=== PATIENT | female | born 1975 | race Caucasian/White ===

== ENCOUNTER 2017-01-01 16:28 | Emergency (ER) | payer BC ==
[2017-01-01 16:37] VITALS: BP 143/102
[2017-01-01] MEDS ORDERED: Ondansetron ODT TAB* 4 MG PO ONE (18:03)
--- NOTE | 2017-01-01 20:41 | UC ---
Gil Ramirez Aidan, scribed for Clarice Hopson MD on 01/01/17 at 1714 . FLU HPI - HPI Summary HPI Summary: 41 y/o female presents to the Urgent Care with a complaint of acute, constant, moderate nausea and fatigue that has persisted for the past week. Associated symptoms include an acute, constant, severe (9/10) AUGUSTE for the past week, swelling in the legs, some SOB, and a dry cough in the mornings. Yesterday, her symptoms became steadily worse. She claims that she is nauseous and hungry all the time. Pt denies any changes to her vision, constipation, diarrhea, changes to joint discomfort, changes to stool color, or urinary sx. Lastly, she requests a test because her period last month lasted only 3 days, which is atypical for her. Pt is S/P liver transplant with autoimmune hepatitis. - History of Current Complaint Chief Complaint: UCGeneralIllness Stated Complaint: NAUSEOUS,FATIGUE Time Seen by Provider: 01/01/17 17:08 Hx Obtained From: Patient Hx Last Menstrual Period: 12/04/16 ?: No Onset/Duration: Gradual Onset, Lasting Days - roughly 1 week, Still Present Severity Currently: Moderate Severity Initially: Severe Pain Intensity: 9 Pain Scale Used: 0-10 Numeric Associated Signs & Symptoms: Positive: Cough, Headache. Negative: Negative - nausea and fatigue, SOB, swelling in the ears, - Allergy/Home Medications Allergies/Adverse Reactions: Allergies Allergy/AdvReac Type Severity Reaction Status Date / Time No Known Allergies Allergy Verified 08/12/15 09:28 PMH/Surg Hx/FS Hx/Imm Hx - Surgical History Surgical History: Yes Surgery Procedure, Year, and Place: LIVER TRANSPLANT 2002 - Family History Known Family History: Positive: Hypertension - Social History Occupation: Employed Full-time Lives: With Family Alcohol Use: Daily Alcohol Amount: 1-2 GLASSES WINE/DAY Substance Use Type: None Smoking Status (MU): Never Smoked Tobacco Review of Systems Constitutional: Fatigue Skin: Negative Eyes: Negative ENT: Negative Respiratory: Shortness Of Breath, Cough Cardiovascular: Negative Gastrointestinal: Nausea Genitourinary: Negative Motor: Negative Neurovascular: Negative Musculoskeletal: Edema - swelling in legs Neurological: Headache Psychological: Negative All Other Systems Reviewed And Are Negative: Yes Physical Exam Triage Information Reviewed: Yes Appearance: Well-Nourished Vital Signs: Initial Vital Signs Temp 98.8 F 06/16/17 16:33 Pulse 104 01/01/17 16:33 Resp 20 01/01/17 16:33 BP 143/102 01/01/17 16:33 Pulse Ox 100 01/01/17 16:33 Vital Signs Reviewed: Yes Eye Exam: Normal Eyes: Positive: Other: - NON-dilated funduscopic exam grossly normal, PERRL, pupils approximately 3mm, Slight nystagmus, left horizontal ENT Exam: Normal ENT: Positive: Other: - Moist mucous membranes, Left TM leos, nonretracted, right TM not visible secondary to cerumen impaction Neck exam: Normal Neck: Positive: Supple, Nontender, No Lymphadenopathy, Other: - Trachea midline Respiratory Exam: Normal, Other - no dyspnea, no tachypnea, normal respiratory rate Respiratory: Positive: Chest non-tender, Lungs clear, Normal breath sounds, No respiratory distress, No accessory muscle use Cardiovascular Exam: Normal, Other - good general skin color, good capilary refill Cardiovascular: Positive: RRR, Brisk Capillary Refill, Murmur:Sys:Grade _?_/ - 1-2+/6 systolic murmur, Other: - HR 100s, correlate with left radial pulse, 1 -2/6 systolic murmur. Negative: No Murmur Abdomen Description: Positive: Nontender, No Organomegaly, Soft, Other: - S/P liver transplant scar noted, No CVAT. Negative: CVA Tenderness (R), CVA Tenderness (L) Bowel Sounds: Positive: Present Musculoskeletal Exam: Normal Musculoskeletal: Positive: Strength Intact, ROM Intact - moves all 4 extremities equally, Other: - PT/DP 2+ equasl bilat. 1+ bilateral extremity edema, No theodore Homans although does complain of achiness of joints including legs Neurological Exam: Normal, Other - grossly intact, nonfocal Neurological: Positive: Other: - Facial expressions symmetric Psychological Exam: Normal, Other - responds easily and appropriately Psychological: Positive: Age Appropriate Behavior Skin Exam: Normal, Other - no visible or reported rash Flu Course/Dx - Course Course Of Treatment: I reviewed the CT Chest from 08/12/[address] Abdomen/ Pelvis from 07/24/15. The patient's blood pressure was 143/102, indicating hypertension. D/w pt. I recommend transfer to the Emergency Department for further evaluation and management. D/w Ms. Branch and her spouse. They express understanding and agreement. EMS encouraged, but they politely but firmly decline (ama for ems signed). I spoke with Dr. Benjamin ED. UCG negative. Zofran odt x 1 prior to departure. Questions answered to the best of my ability. - Differential Dx/Diagnosis Provider Diagnoses: Headache. Hypertension. Immunosuppressive tx, s/p liver transplant (14 yrs ago). Nausea Discharge - Discharge Plan Condition: Good Disposition: TRANS HIGHER LVL OF CARE FAC Referrals: Oscar Fabian MD [Primary Care Provider] - Additional Instructions: Your blood pressure was 143/102, indicating hypertension. Recommended follow up with your primary care provider within 4 weeks to have your blood pressure evaluated. The documentation as recorded by the Gil bull Aidan accurately reflects the service I personally performed and the decisions made by me, Clarice Hopson MD.
== END 2017-01-01 18:19 | disposition short-term general hospital (02) ==
LOC: UCEAST 16:28
DX: R51 Headache (principal); Z94.4 Liver transplant status; Z79.899 Other long term (current) drug therapy; R11.0 Nausea
CPT/HCPCS: 81003; 84702; 87086; 99212; A9270-GY; G0463

== ENCOUNTER 2017-01-01 18:35 | Emergency (ER) | payer BC ==
[2017-01-01] MEDS ORDERED: diPHENhydraMINE IV* 50 MG/ML 1 ml VIAL (BENADRYL) IV ONE (19:12)
[2017-01-01] MEDS ORDERED: Ketorolac INJ* 30 MG/ML 1 ML VIAL IV ONE (19:12)
[2017-01-01] MEDS ORDERED: Metoclopramide IV* 5 MG/ML 2 ML VIAL IV ONE (19:12)
[2017-01-01 21:09] LABS: Hematocrit 36 % (35-47); Hemoglobin 12.3 g/dl (12.0-16.0); Mean Corpuscular HGB Conc 34 g/dl (31-36); Mean Corpuscular Hemoglobin 31 pg (27-31); Mean Corpuscular Volume 90 fL (80-97); Mean Platelet Volume 8 um3 (7.4-10.4); Red Blood Count 3.99 10^6/ul (4.0-5.4); Red Cell Distribution Width 15 % (10.5-15); White Blood Count 10.1 10^3/ul (3.5-10.8)
[2017-01-01] MEDS ORDERED: Ondansetron ODT TAB* 4 MG PO ONE (21:18)
[2017-01-01 21:45] VITALS: BP 143/93
--- NOTE | 2017-01-01 22:44 | ED ---
Sissy Ramirez Alfonso, scribed for Ant Flores MD on 01/01/17 at 1911 . Complex/Multi-Sys Presentation - HPI Summary HPI Summary: This is a 41 year old female presenting to [facility] c/o a frontal headache since earlier today. The patient states "everything is bothering me with this headache." She reports taking Excedrin at 0830 has not alleviated her symptoms. Sx aggravated by noise and light, and alleviated by nothing. She reports chills , SOB, cough, nausea, dizziness, photophobia, and loss of appetite. She also reports "aches and pains" since last month. PMHx of migraines. PSHx of liver transplant in 2002. - History Of Current Complaint Chief Complaint: EDHeadache Time Seen by Provider: 01/01/17 18:51 Hx Obtained From: Patient Onset/Duration: Sudden Onset, Lasting Hours - Earlier today, Still Present Timing: Constant Severity Currently: Moderate Severity Initially: Moderate Aggravating Factor(s): Noise and light Alleviating Factor(s): Nothing Associated Signs And Symptoms: Positive: Dizziness, SOB, Cough, Nausea, Other - Positive chills, loss of appetite, and photophobia. - Allergies/Home Medications Allergies/Adverse Reactions: Allergies Allergy/AdvReac Type Severity Reaction Status Date / Time No Known Allergies Allergy Verified 08/12/15 09:28 PMH/Surg Hx/FS Hx/Imm Hx Cardiovascular History: Reports: Hx Hypertension Sensory History: Denies: Hx Deafness Opthamlomology History: Denies: Hx Legally Blind - Surgical History Surgery Procedure, Year, and Place: LIVER TRANSPLANT 2002 Infectious Disease History: No Infectious Disease History: Denies: Traveled Outside the [place] in Last 30 Days - Family History Known Family History: Positive: Cardiac Disease, Other - Cancers - Social History Alcohol Use: Daily Alcohol Amount: 1-2 GLASSES WINE/DAY Substance Use Type: Reports: None Smoking Status (MU): Never Smoked Tobacco Review of Systems Positive: Chills Positive: Shortness Of Breath Positive: Nausea, Other - Positive loss of appetite Positive: Arthralgia - "aches and pains" since last month Neurological: Other - Positive dizziness and photophobia Positive: Headache - Frontal All Other Systems Reviewed And Are Negative: Yes Physical Exam Triage Information Reviewed: Yes Vital Signs On Initial Exam: Initial Vitals Temp Pulse Resp BP Pulse Ox 97.1 F 92 20 141/107 100 01/01/17 18:42 01/01/17 18:42 01/01/17 18:42 01/01/17 18:42 01/01/17 18:42 Vital Signs Reviewed: Yes Appearance: Positive: Well-Appearing, No Pain Distress, Obese Skin: Positive: Warm, Skin Color Reflects Adequate Perfusion, Dry Head/Face: Positive: Normal Head/Face Inspection Eyes: Positive: Normal ENT: Positive: Normal ENT inspection Neck: Positive: Supple, Nontender Respiratory/Lung Sounds: Positive: Clear to Auscultation, Breath Sounds Present Cardiovascular: Positive: RRR Abdomen Description: Positive: Nontender, Soft, Other: - Tender paracervical Bowel Sounds: Positive: Present Musculoskeletal: Positive: Normal Neurological: Positive: Normal, Sensory/Motor Intact, Alert, Oriented to Person Place, Time, CN Intact II-III, Other - Negative for meningeal signs. Negative: Focal Deficit @ Psychiatric: Positive: Normal Diagnostics - Vital Signs Vital Signs Temp Pulse Resp BP Pulse Ox 01/01/17 18:46 97.1 F 98 20 141/107 100 01/01/17 18:42 97.1 F 92 20 141/107 100 - Laboratory Lab Results: Lab Results 01/01/17 Range/Units 19:34 WBC 10.1 (3.5-10.8) 10^3/ul RBC 3.99 L (4.0-5.4) 10^6/ul Hgb 12.3 (12.0-16.0) g/dl Hct 36 (35-47) % MCV 90 (80-97) fL MCH 31 (27-31) pg MCHC 34 (31-36) g/dl RDW 15 (10.5-15) % Plt Count 212 (150-450) 10^3/ul MPV 8 (7.4-10.4) um3 Neut % (Auto) 58.2 (38-83) % Lymph % (Auto) 32.2 (25-47) % [place] % (Auto) 7.2 (1-9) % Eos % (Auto) 1.9 (0-6) % Baso % (Auto) 0.5 (0-2) % Absolute Neuts (auto) 5.9 (1.5-7.7) 10^3/ul Absolute Lymphs (auto) 3.3 (1.0-4.8) 10^3/ul Absolute Monos (auto) 0.7 (0-0.8) 10^3/ul Absolute Eos (auto) 0.2 (0-0.6) 10^3/ul Absolute Basos (auto) 0.1 (0-0.2) 10^3/ul Absolute Nucleated RBC 0 10^3/ul Nucleated RBC % 0 Result Diagrams: 01/01/17 19:34 Lab Statement: Any lab studies that have been ordered have been reviewed, and results considered in the medical decision making process. Re-Evaluation - Re-Evaluation First Eval Re-Evaluation Time: 20:30 Comment: The patient is still nauseous and in bed. Second Eval Re-Evaluation Time: 21:17 Change: Improved Comment: The patient is feeling better. Discussed discharge; she understands and is agreeable. Complex Multi-Symp Course/Dx Course Of Treatment: Ms. Branch relates to me that she has been nauseated for several days with a slight nonproductive cough and that this has triggered a migraine. She describes her AUGUSTE as typical for her migraines. Her W/U here is negative for evidence of infection and she has no meningeal signs. She improved here with a migraine cocktail of ketorolac, benadryl, reglan and IV NS. She may have a viral syndrome with the slight cough and nausea. I recommended close F/U. - Diagnoses Provider Diagnoses: Migraine headache Discharge - Discharge Plan Condition: Stable Disposition: HOME Prescriptions: Ondansetron ODT TAB* [Zofran Odt TAB*] 4 mg PO Q6H PRN #20 tab.odt PRN Reason: Nausea/Vomiting Patient Education Materials: Migraine Headache (ED) Referrals: Oscar Fabian MD [Primary Care Provider] - 3 Days Additional Instructions: Return to the ED if symptoms do not improve. The documentation as recorded by the Sissy bull Alfonso accurately reflects the service I personally performed and the decisions made by me, Ant Flores MD.
== END 2017-01-01 21:42 | disposition home or self-care (01) ==
LOC: ED 18:35
DX: G43.909 Migraine, unspecified, not intractable, without status migrainosus (principal); R51 Headache; R42 Dizziness and giddiness; R06.02 Shortness of breath; R05 Cough; R11.0 Nausea
CPT/HCPCS: 36415; 85025; 96374; 96375; 99283; A9270-GY; J1200; J1885

== ENCOUNTER 2017-02-08 15:12 | Emergency (ER) | payer SELFPAY ==
[2017-02-08 17:17] LABS: Hematocrit 37 % (35-47); Hemoglobin 12.5 g/dl (12.0-16.0); Mean Corpuscular HGB Conc 34 g/dl (31-36); Mean Corpuscular Hemoglobin 31 pg (27-31); Mean Corpuscular Volume 92 fL (80-97); Mean Platelet Volume 8 um3 (7.4-10.4); Red Blood Count 3.99 10^6/ul (4.0-5.4); Red Cell Distribution Width 15 % (10.5-15); White Blood Count 10.4 10^3/ul (3.5-10.8)
[2017-02-08 17:32] LABS: BUN/Creatinine Ratio 9.3 (8-20); Calcium 9.3 mg/dL (8.6-10.3); EGFR African American 72.3 (>60); EGFR Non-African American 56.2 (>60); Potassium 3.6 mmol/L (3.5-5.0)
[2017-02-08] MEDS ORDERED: Iodixanol* (CONTRAST) 320 MG/ML 100 ML SDV IV ONE (17:43)
[2017-02-08] MEDS ORDERED: Metoclopramide IV* 5 MG/ML 2 ML VIAL IV SLOW PU ONE (17:47)
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
[2017-02-08 21:38] VITALS: BP 135/87
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
== END 2017-02-08 21:38 ==
LOC: ED 15:12
DX: S06.0X0A Concussion without loss of consciousness, initial encounter (principal); S16.1XXA Strain of muscle, fascia and tendon at neck level, initial encounter; V43.52XA Car driver injured in collision with other type car in traffic accident, initial encounter; Y93.9 Activity, unspecified; Y92.410 Unspecified street and highway as the place of occurrence of the external cause; M79.671 Pain in right foot; I10 Essential (primary) hypertension; Z94.4 Liver transplant status
CPT/HCPCS: 36415; 70450; 71260; 72110; 72125; 80048; 85027; 96374; 99283; Q9967

== ENCOUNTER 2018-06-20 06:02 | Emergency (ER) | payer BC, OTHER ==
--- NOTE | 2018-06-20 06:21 | ED ---
Abdominal Pain/Female - HPI Summary HPI Summary: Patient is a 43-year-old female who presents to emergency department for diffuse abdominal cramping, diarrhea and decreased appetite 2 weeks. Patient notes a history of autoimmune hepatitis with liver transplant in 2002. Patient notes that she restarted magnesium 2 days ago for ongoing low magnesium. She also notes her cellcept dose was increased over the last few days. Pt. notes being on what she believes was clindamycin 2 weeks ago for an abscess under left axilla. Abscess has since resolved. Pt. notes 2-3 loose water stools a days. She notes associated abd. cramping after bowel movement. Denies fever, chills, URI sxs, vomiting, urinary sxs. Denies other past medical hx. Symptoms are moderate in severity. - History of Current Complaint Chief Complaint: EDAbdPain Stated Complaint: GENERAL ILLNESS Time Seen by Provider: 06/20/18 06:18 Hx Obtained From: Patient Hx Last Menstrual Period: 12/04/16 Pain Intensity: 6 Allergies/Adverse Reactions: Allergies Allergy/AdvReac Type Severity Reaction Status Date / Time No Known Allergies Allergy Verified 06/20/18 06:17 PMH/Surg Hx/FS Hx/Imm Hx Previously Healthy: Yes Cardiovascular History: Reports: Hx Hypertension Sensory History: Denies: Hx Legally Blind, Hx Deafness Opthamlomology History: Denies: Hx Legally Blind - Surgical History Surgery Procedure, Year, and Place: LIVER TRANSPLANT 2002 - Immunization History Date of Tetanus Vaccine: utd Date of Influenza Vaccine: none Infectious Disease History: No Infectious Disease History: Denies: Traveled Outside the [place] in Last 30 Days - Family History Known Family History: Positive: Cardiac Disease, Other - Cancers - Social History Lives: With Family Alcohol Use: Occasionally Alcohol Amount: 1-2 GLASSES WINE/DAY Substance Use Type: Reports: None Smoking Status (MU): Never Smoked Tobacco Review of Systems Constitutional: Negative Negative: Fever, Chills Eyes: Negative ENT: Negative Cardiovascular: Negative Negative: Chest Pain Respiratory: Negative Negative: Shortness Of Breath, Cough Positive: Abdominal Pain, Diarrhea, Other - decreased appetite Genitourinary: Negative Musculoskeletal: Negative Skin: Negative Neurological: Negative All Other Systems Reviewed And Are Negative: Yes Physical Exam Triage Information Reviewed: Yes Vital Signs On Initial Exam: Initial Vitals Temp Pulse Resp BP Pulse Ox 97.7 F 87 20 107/73 98 06/20/18 06:04 06/20/18 06:04 06/20/18 06:04 06/20/18 06:04 06/20/18 06:04 Vital Signs Reviewed: Yes Appearance: Positive: Well-Appearing - Pt. lying in bed in NAD. Appears tired but nontoxic. Skin: Positive: Warm, Skin Color Reflects Adequate Perfusion Head/Face: Positive: Normal Head/Face Inspection Eyes: Positive: Normal, EOMI, RADHA ENT: Positive: Other - Lips are chapped and mouth is dry Neck: Positive: Supple Respiratory/Lung Sounds: Positive: Clear to Auscultation, Breath Sounds Present Cardiovascular: Positive: Normal, RRR Abdomen Description: Positive: Nontender, Soft. Negative: Distended, Guarding Neurological: Positive: Normal, CN Intact II-III Psychiatric: Positive: Affect/Mood Appropriate Diagnostics - Vital Signs Vital Signs Temp Pulse Resp BP Pulse Ox 06/20/18 06:04 97.7 F 87 20 107/73 98 - Laboratory Result Diagrams: 06/20/18 06:39 06/20/18 06:39 Lab Statement: Any lab studies that have been ordered have been reviewed, and results considered in the medical decision making process. Abdominal Pain Fem Course/Dx - Course Course Of Treatment: Patient presenting with diarrhea and diffuse abdominal cramping 2 weeks. She is afebrile with stable vital signs. She has benign abdominal exam. She was given IV fluids and basic labs were checked. CBC is unremarkable. Mag 1.6 which pt. states is an improvement from her last level. Patient does appear dehydrated with elevated creatinine and BUN compared to her base baseline. Liver functions are normal. Pt. is positive for C diff. I did touch base with pt's exhibits coordinator Yanique, and they state pt. can f.u with PCP. Results discussed with pt. and family. Will start on oral vancomycin. Pt. to call PCP today for a close apt. to recheck kidney function. TO increase fluids. To return to ER If sxs change or worsen. Pt. understands and agrees with plan. - Diagnoses Differential Diagnosis: Positive: Appendicitis, Bowel Obstruction, Constipation , Gall Bladder Disease, Hepatitis, Pancreatitis Provider Diagnoses: C. difficile colitis Discharge - Sign-Out/Discharge Documenting (check all that apply): Patient Departure - Discharge Plan Condition: Good Disposition: HOME Prescriptions: Vancomycin CAP* 125 mg PO QID #40 cap Patient Education Materials: C Diff (Clostridium Difficile) Infection (ED) Forms: *Work Release Referrals: Oscar Fabian MD [Primary Care Provider] - Additional Instructions: Schedule a close follow up appointment with PCP for repeat labs Take vancomycin as directed Increase fluids Continue home medications as directed Return to ER if symptoms change or worsen - Billing Disposition and Condition Condition: GOOD Disposition: Home
[2018-06-20] MEDS ORDERED: NS 0.9% 1000 ML* 1,000 ML IV ONE ×2 (06:28→08:03)
[2018-06-20 06:52] LABS: ABS Basophils 0.1 10^3/ul (0-0.2); ABS Eosinophils 0.4 10^3/ul (0-0.6); ABS Monocytes 0.7 10^3/ul (0-0.8); ABS Neutrophils 5.7 10^3/ul (1.5-7.7); ABS Nucleated RBC 0 10^3/ul; Eosinophil % 4.1 %; Hematocrit 34 % (35-47); Hemoglobin 11.8 g/dl (12.0-16.0); Lymphocyte % 22.8 %; Mean Corpuscular HGB Conc 35 g/dl (31-36); Mean Corpuscular Hemoglobin 31 pg (27-31); Mean Corpuscular Volume 89 fL (80-97); Mean Platelet Volume 8.3 fL (7.4-10.4); Nucleated Red Blood Cells % 0.1; Platelet Count 185 10^3/ul (150-450); Red Blood Count 3.79 10^6/ul (4.00-5.40); Red Cell Distribution Width 13 % (10.5-15); White Blood Count 8.8 10^3/ul (3.5-10.8)
[2018-06-20 10:11] VITALS: BP 123/71
--- NOTE | 2018-06-22 05:55 | PN ---
Progress Note - Progress Note Date of Service: 06/22/18 Note: patient c diff positive. patient placed on vanco which is appropriate no further action required.
== END 2018-06-20 10:10 | disposition home or self-care (01) ==
LOC: ED 06:02
DX: A04.72 Enterocolitis due to Clostridium difficile, not specified as recurrent (principal); Z94.4 Liver transplant status; Z82.49 Family history of ischemic heart disease and other diseases of the circulatory system; Z80.8 Family history of malignant neoplasm of other organs or systems
CPT/HCPCS: 36415; 80053; 83690; 83735; 85025; 87045; 87046; 87077; 87177; 87209; 87328; 87329; 87493; 87899; 96360; 99282

== ENCOUNTER 2018-12-19 18:21 | Emergency (ER) | payer BC ==
[2018-12-19 19:58] LABS: ABS Basophils 0.1 10^3/ul (0-0.2); ABS Eosinophils 0.2 10^3/ul (0-0.6); ABS Lymphocytes 3.2 10^3/ul (1.0-4.8); ABS Monocytes 0.6 10^3/ul (0-0.8); ABS Neutrophils 9.1 10^3/ul (1.5-7.7); Eosinophil % 1.7 %; Hematocrit 42 % (35-47); Hemoglobin 13.9 g/dL (12.0-16.0); Mean Corpuscular HGB Conc 33 g/dL (31-36); Mean Corpuscular Hemoglobin 30 pg (27-31); Mean Corpuscular Volume 90 fL (80-97); Mean Platelet Volume 7.8 fL (7.4-10.4); Platelet Count 296 10^3/uL (150-450); Red Blood Count 4.65 10^6 /uL (3.70-4.87); Red Cell Distribution Width 14 % (10.5-15); White Blood Count 13.2 10^3/uL (3.5-10.8)
[2018-12-19 20:05] LABS: INR 1.09 (0.82-1.09)
[2018-12-19 20:20] LABS: Albumin 4.7 g/dL (3.2-5.2); Albumin/Globulin Ratio 1.1 (1-3); BUN/Creatinine Ratio 7.1 (8-20); Calcium 9.9 mg/dL (8.6-10.3); EGFR African American 63.3 (>60); EGFR Non-African American 52.3 (>60); Globulin 4.1 g/dL (2-4); Potassium 3.6 mmol/L (3.5-5.0); Total Bilirubin 0.6 mg/dL (0.2-1.0); Total Protein 8.8 g/dL (6.4-8.9)
--- NOTE | 2018-12-19 21:41 | ED ---
HPI Chest Pain - HPI Summary HPI Summary: The patient is a 43 y/o F presenting to [facility] accompanied by boyfriend with a chief complaint of sudden onset heart palpitations and chest heaviness starting this morning around [address]30 [address] She states that she has had this pain for the last month or so, but the pain has been more constant today than usual. She states that the pain also radiates into her left arm. She additionally c/o fatigue, nausea, and diaphoresis. She denies SOB. Her pain was mildly relieved in the waiting room but has since returned, with a current rating of 5/10 in severity. She states that she gets some exercise with her 6 y/o daughter. Nonsmoker, no EtOH, no substance use. Hx of HTN (controlled) and liver transplant for hepatitis. FHx of cardiac disease. - History of Current Complaint Chief Complaint: EDChestPainROMI Time Seen by Provider: 12/19/18 21:31 Hx Obtained From: Patient Hx Last Menstrual Period: 12/04/16 Onset/Duration: Started Hours Ago - at 0930 this morning, Still Present Timing: Lasting Hours Initial Severity: Mild Current Severity: Moderate Pain Intensity: 5 Pain Scale Used: 0-10 Numeric Chest Pain Location: Left Anterior, Right Anterior Chest Pain Radiates: Yes Chest Pain Radiates To:: Arm - left Character: Heaviness Aggravating Factor(s): Nothing Alleviating Factor(s): Rest Associated Signs and Symptoms: Positive: Diaphoresis, Nausea, Palpitations, Other: - fatigue. Negative: Shortness of Breath - Allergy/Home Medications Allergies/Adverse Reactions: Allergies Allergy/AdvReac Type Severity Reaction Status Date / Time No Known Allergies Allergy Verified 12/19/18 18:26 PMH/Surg Hx/FS Hx/Imm Hx Cardiovascular History: Reports: Hx Hypertension Sensory History: Denies: Hx Legally Blind, Hx Deafness Opthamlomology History: Denies: Hx Legally Blind - Surgical History Surgery Procedure, Year, and Place: LIVER TRANSPLANT 2002 - Immunization History Date of Tetanus Vaccine: utd Date of Influenza Vaccine: none Infectious Disease History: Yes Infectious Disease History: Reports: Hx Hepatitis Denies: Traveled Outside the [place] in Last 30 Days - Family History Known Family History: Positive: Cardiac Disease - in father starting in 60s, Other - Cancers - Social History Alcohol Use: Occasionally Alcohol Amount: 1-2 GLASSES WINE/DAY Hx Substance Use: No Substance Use Type: Reports: None Hx Tobacco Use: No Smoking Status (MU): Never Smoked Tobacco Do You Chew or Dip Tobacco: No Have You Chewed or Dipped Tobacco in the LAST YEAR: No Have You Smoked in the Last Year: No Review of Systems Positive: Fatigue, Skin Diaphoresis Positive: Palpitations, Chest Pain - acorss the chest radiating into left arm Negative: Shortness Of Breath Positive: Nausea. Negative: Vomiting All Other Systems Reviewed And Are Negative: Yes Physical Exam - Summary Physical Exam Summary: Appearance: Well-appearing, Well-nourished, lying in bed comfortably Skin: Warm, dry, no obvious rash Eyes: sclera anicteric, no conjunctival pallor ENT: mucous membranes moist, pharynx appears normal Neck: Supple, nontender Respiratory: Clear to auscultation, no signs of respiratory distress Cardiovascular: Normal S1, S2. No murmurs. Normal distal pulses in tibial and radial bilaterally. Focal tenderness that is reproducible on the left costochondral border Abdomen: Soft, nontender, normal active bowel sounds present Musculoskeletal: Normal, Strength/ROM Intact Neurological: A&Ox3, awake and alert, mentation is normal, speech is fluent and appropriate Psychiatric: affect is normal, does not appear anxious or depressed Triage Information Reviewed: Yes Vital Signs On Initial Exam: Initial Vitals Temp Pulse Resp BP Pulse Ox 98.2 F 118 16 149/102 98 12/19/18 18:23 12/19/18 18:23 12/19/18 18:23 12/19/18 18:23 12/19/18 18:23 Vital Signs Reviewed: Yes Diagnostics - Vital Signs Vital Signs Temp Pulse Resp BP Pulse Ox 12/19/18 20:30 98.3 F 110 18 134/93 97 12/19/18 18:23 98.2 F 118 16 149/102 98 - Laboratory Lab Results: Lab Results 12/19/18 12/19/18 12/19/18 Range/Units 19:50 19:50 19:50 WBC 13.2 H (3.5-10.8) 10^3/uL RBC 4.65 (3.70-4.87) 10^6 /uL Hgb 13.9 (12.0-16.0) g/dL Hct 42 (35-47) % MCV 90 (80-97) fL MCH 30 (27-31) pg MCHC 33 (31-36) g/dL RDW 14 (10.5-15) % Plt Count 296 (150-450) 10^3/uL MPV 7.8 (7.4-10.4) fL Neut % (Auto) 68.8 % Lymph % (Auto) 24.0 % [place] % (Auto) 4.4 % Eos % (Auto) 1.7 % Baso % (Auto) 1.1 % Absolute Neuts (auto) 9.1 H (1.5-7.7) 10^3/ul Absolute Lymphs (auto) 3.2 (1.0-4.8) 10^3/ul Absolute Monos (auto) 0.6 (0-0.8) 10^3/ul Absolute Eos (auto) 0.2 (0-0.6) 10^3/ul Absolute Basos (auto) 0.1 (0-0.2) 10^3/ul Absolute Nucleated RBC 0.0 10^3/ul Nucleated RBC % 0.0 INR (Anticoag Therapy) 1.09 (0.82-1.09) Sodium 140 (135-145) mmol/L Potassium 3.6 (3.5-5.0) mmol/L Chloride 105 (101-111) mmol/L Carbon Dioxide 26 (22-32) mmol/L Anion Gap 9 (2-11) mmol/L BUN 8 (6-24) mg/dL Creatinine 1.13 H (0.51-0.95) mg/dL Est GFR ( Amer) 63.3 (>60) Est GFR (Non-Af Amer) 52.3 (>60) BUN/Creatinine Ratio 7.1 L (8-20) Glucose 95 (70-100) mg/dL Calcium 9.9 (8.6-10.3) mg/dL Total Bilirubin 0.60 (0.2-1.0) mg/dL AST 24 (13-39) U/L ALT 24 (7-52) U/L Alkaline Phosphatase 88 (34-104) U/L Troponin I 0.00 (<0.04) ng/mL Total Protein 8.8 (6.4-8.9) g/dL Albumin 4.7 (3.2-5.2) g/dL Globulin 4.1 H (2-4) g/dL Albumin/Globulin Ratio 1.1 (1-3) Result Diagrams: 12/19/18 19:50 12/19/18 19:50 Lab Statement: Any lab studies that have been ordered have been reviewed, and results considered in the medical decision making process. - Radiology CXR Radiology Interpretation Completed By: Radiologist Summary of Radiographic Findings: No acute process. ED physician has reviewed this radiology report. - EKG 1828 Cardiac Rate: Tachycardia - 109 BPM EKG Rhythm: Sinus Tachycardia Summary of EKG Findings: P waves, QRS complex, and T waves are within normal limits, T waves and intervals are normal, no ischemic changes. 2140 Cardiac Rate: NL - 98 BPM EKG Rhythm: Sinus Rhythm Summary of EKG Findings: NSR at 98 BPM, P waves, QRS complex, and T waves are within normal limits, T waves and intervals are normal, no ischemic changes. This is a normal EKG. Re-Evaluation - Re-Evaluation First Eval Re-Evaluation Time: 23:05 Comment: I spoke with the patient concerning results and discharge home. Chest Pain Course/Dx - Course Course Of Treatment: The patient is a 43 y/o F presenting to [facility] accompanied by boyfriend with a chief complaint of sudden onset heart palpitations and anterior chest heaviness that radiates into the left arm starting this morning around 0930 [address] and is more constant than usual CP she experiences. She additionally c/o fatigue, nausea, and diaphoresis. She denies SOB. Upon physical exam, the patient exhibits focal tenderness that is reproducible on the left costochondral border. Blood work reveals WBC of 13.2, abs neuts of 9.1 , creatinine of 1.13, BUN/creatinine ratio of 7.1, and globulin of 4.1 but otherwise no acute abnormalities. First EKG reveals sinus tachycardia at 109 BPM. Second EKG reveals NSR without ischemic changes. CXR reveals no acute process. She is diagnosed with chest pain and costochondritis. She will be discharged home with follow up with PCP in one week. She agrees with this plan and understands the need for return to the ED for any new or worsening symptoms. - Diagnoses Provider Diagnoses: Chest pain, Costochondritis Discharge - Sign-Out/Discharge Documenting (check all that apply): Patient Departure - Patient will be dsischarged home. Patient Received Moderate/Deep Sedation with Procedure: No - Discharge Plan Condition: Good Disposition: HOME Patient Education Materials: Chest Pain (ED), Costochondritis (ED) Referrals: Oscar Fabian MD [Primary Care Provider] - 1 Week (if no better) Additional Instructions: RETURN TO THE EMERGENCY DEPARTMENT FOR ANY NEW OR WORSENING SYMPTOMS. - Billing Disposition and Condition Condition: GOOD Disposition: Home - Attestation Statements Document Initiated by Jonnieibe: Yes Documenting Scribe: Lashonda Young Provider For Whom Lizabeth is Documenting (Include Credential): Dr. Ant Benson MD Scribe Attestation: Lashonda Ramirez scribed for Dr. Ant Benson MD on 12/21/18 at 0444. Scribe Documentation Reviewed: Yes Provider Attestation: The documentation as recorded by the Lashonda bull accurately reflects the service I personally performed and the decisions made by me, Dr. Ant Benson MD Status of Scribe Document: Viewed
[2018-12-19 23:16] VITALS: BP 0/0
== END 2018-12-19 23:15 | disposition home or self-care (01) ==
LOC: ED 18:21
DX: R07.9 Chest pain, unspecified (principal); M94.0 Chondrocostal junction syndrome [Tietze]; R94.31 Abnormal electrocardiogram [ECG] [EKG]; I10 Essential (primary) hypertension; Z94.4 Liver transplant status
CPT/HCPCS: 36415; 71046; 80053; 84484; 85025; 85610; 93005; 99282

== ENCOUNTER 2019-09-26 06:08 | Emergency (ER) | payer BC ==
--- NOTE | 2019-09-26 07:12 | ED ---
Dizziness - HPI Summary HPI Summary: 44 year old F presenting to [facility] with a chief complaint of dizziness/ lightheadedness when getting out of bed this morning. The patient rates the pain 0/10 in severity. Patient reports a headache, feeling like her "head and brain are trying to separate", and feeling like her eyes were trying to cross. Symptoms aggravated by movement. Symptoms alleviated by nothing. Patient denies blurry vision. Hx migraines, states her migraine headaches are much worse. She has a history of a liver transplant 16 years ago. Medication list reviewed. Allergy list reviewed. Home Medications Medication Instructions Recorded Confirmed Type Amitriptyline TAB* [Elavil TAB*] 50 mg PO BEDTIME PRN 09/26/19 09/26/19 History Mycophenolate Mofetil CAP(*) 3 cap PO BID 09/26/19 09/26/19 History [Cellcept CAP(*)] Tacrolimus [Tacrolimus 1 MG-] 3 cap PO BID 09/26/19 09/26/19 History - History Of Current Complaint Chief Complaint: EDDizziness Stated Complaint: DIZZY PER PT Time Seen by Provider: 09/26/19 06:53 Hx Obtained From: Patient Onset/Duration: Still Present Timing: Constant Character: Dizzy Aggravating Factor(s): Nothing Alleviating Factor(s): Nothing Associated Signs And Symptoms: Positive: Negative - Blurry vision, Visual Changes, Other: - Headache - Allergies/Home Medications Allergies/Adverse Reactions: Allergies Allergy/AdvReac Type Severity Reaction Status Date / Time No Known Allergies Allergy Verified 09/26/19 06:15 Home Medications: Home Medications Amitriptyline TAB* [Elavil TAB*] 50 mg PO BEDTIME PRN 09/26/19 [History Confirmed 09/26/19] Labetalol TAB* [Trandate TAB*] 50 mg PO BID 09/26/19 [History Confirmed 09/26/19 ] Meclizine TAB* [Antivert 12.5 TAB*] 25 mg PO TID PRN 30 Days #30 tab 09/26/19 [ Rx] Mycophenolate Mofetil CAP(*) [Cellcept CAP(*)] 3 cap PO BID 09/26/19 [History Confirmed 09/26/19] Tacrolimus [Tacrolimus 1 MG-] 3 cap PO BID 09/26/19 [History Confirmed 03/10/20] PMH/Surg Hx/FS Hx/Imm Hx Cardiovascular History: Reports: Hx Hypertension Sensory History: Denies: Hx Legally Blind, Hx Deafness Opthamlomology History: Denies: Hx Legally Blind Neurological History: Reports: Hx Migraine - Surgical History Surgery Procedure, Year, and Place: LIVER TRANSPLANT 2002 - Immunization History Date of Tetanus Vaccine: utd Date of Influenza Vaccine: none Infectious Disease History: No Infectious Disease History: Reports: Hx Hepatitis Denies: Traveled Outside the [place] in Last 30 Days - Family History Known Family History: Positive: Cardiac Disease - in father starting in 60s, Other - Cancers - Social History Alcohol Use: Occasionally Alcohol Amount: 1-2 GLASSES WINE/DAY Hx Substance Use: No Substance Use Type: Reports: None Hx Tobacco Use: No Smoking Status (MU): Never Smoked Tobacco Have You Smoked in the Last Year: No Review of Systems Positive: Other - Visual changes. Negative: Blurred Vision Neurological/Mental Status: Other - Dizziness Positive: Headache All Other Systems Reviewed And Are Negative: Yes Physical Exam - Summary Physical Exam Summary: Constitutional: Well-developed, Well-nourished, Alert. (-) Distressed Skin: Warm, Dry HENT: Normocephalic; Atraumatic Eyes: Conjunctiva normal Neck: Musculoskeletal ROM normal neck. (-) JVD, (-) Nuchal rigidity Cardio: Rhythm regular, rate normal, Heart sounds normal; Intact distal pulses; Radial pulses are 2+ and symmetric. (-) Murmur Pulmonary/Chest wall: Effort normal. (-) Respiratory distress, (-) Wheezes, (-) Rales Abd: Soft. (-) Tenderness, (-) Distension, (-) Guarding, (-) Rebound Musculoskeletal: (-) Edema Lymph: (-) Cervical adenopathy Neuro: Alert, PERRL, Oriented x3, Strength normal, Cranial nerves II-XII are grossly intact. SILT, Strength 5/5 BUE and BLE, (-) Dysmetria, (-) Nystagmus, ambulates w steady gait. Psych: Mood and affect Normal Triage Information Reviewed: Yes Vital Signs On Initial Exam: Initial Vitals Temp Pulse Resp BP Pulse Ox 98.1 F 88 15 121/84 97 09/26/19 06:12 09/26/19 06:12 09/26/19 06:12 09/26/19 06:12 09/26/19 06:12 Vital Signs Reviewed: Yes Procedures - Sedation Patient Received Moderate/Deep Sedation with Procedure: No Diagnostics - Vital Signs Vital Signs Temp Pulse Resp BP Pulse Ox 09/26/19 06:12 98.1 F 88 15 121/84 97 - Laboratory Result Diagrams: 09/26/19 07:24 09/26/19 07:24 Lab Statement: Any lab studies that have been ordered have been reviewed, and results considered in the medical decision making process. - EKG 07:37 Cardiac Rate: NL - 72 BPM EKG Rhythm: Sinus Rhythm Summary of EKG Findings: An EKG at 07:37 reveals normal sinus rhythm rate of 72 BPM, otherwise unremarkable. ED physician has reviewed and interpreted this EKG. Re-Evaluation - Re-Evaluation First Eval Re-Evaluation Time: 08:00 Change: Unchanged - patient reporting vertigo on lying flat, no appreciable nystagmus. Will try meclizine Dizzy Course/Dx - Course Course Of Treatment: 44 y/o F w hx migraines p/w lightheadedness. Dizziness ddx : most likely BPPV - intermittent episodes of vertigo worse when turning head to L. No recent URI. No tinnitus. Attempted Ladonna w some success. Differential diagnosis includes: Cardiac causes - will check EKG, troponin, get orthostatics. Electrolyte disturbances - will check CMP. Anemia - will check CBC. - Diagnoses Provider Diagnoses: BPPV (benign paroxysmal positional vertigo) Discharge ED - Sign-Out/Discharge Documenting (check all that apply): Patient Departure - Discharge Plan Condition: Stable Disposition: HOME Prescriptions: Meclizine TAB* [Antivert 12.5 TAB*] 25 mg PO TID PRN 30 Days #30 tab PRN Reason: Vertigo Patient Education Materials: Benign Paroxysmal Positional Vertigo (ED) Referrals: Oscar Fabian MD [Primary Care Provider] - Additional Instructions: You were seen in the emergency department for vertigo. You likely have something called BPPV. You can try the Ladonna maneuver at home. Please follow up with your primary care doctor in next 2-3 days and return to emergency department for worsening dizziness ,weakness, trouble walking or concerning symptoms. It was a pleasure taking care of you today. - Billing Disposition and Condition Condition: STABLE Disposition: Home - Attestation Statements Document Initiated by Scribe: Yes Documenting Scribe: Darlin Guallpa Provider For Whom Jonnieibe is Documenting (Include Credential): Hector Denson MD Scribe Attestation: Darlin Ramirez, scribed for Hector Denson MD on 09/27/19 at 1001. Scribe Documentation Reviewed: Yes Provider Attestation: The documentation as recorded by the jonnieibeDarlin accurately reflects the service I personally performed and the decisions made by , Hector Denson MD Status of Scribe Document: Viewed
[2019-09-26] MEDS ORDERED: NS 0.9% 1000 ML** 1,000 ML IV ONE (07:16)
[2019-09-26] MEDS ORDERED: Metoclopramide IV* 5 MG/ML 2 ML VIAL IV SLOW PU ONE (07:16)
[2019-09-26] MEDS ORDERED: Acetaminophen TAB* 325 MG PO ONE (07:16)
[2019-09-26 07:33] LABS: Hematocrit 35 % (35-47); Hemoglobin 12.2 g/dL (12.0-16.0); Mean Corpuscular HGB Conc 35 g/dL (31-36); Mean Corpuscular Hemoglobin 31 pg (27-31); Mean Corpuscular Volume 90 fL (80-97); Mean Platelet Volume 8.2 fL (7.4-10.4); Platelet Count 230 10^3/uL (150-450); Red Blood Count 3.94 10^6 /uL (3.70-4.87); Red Cell Distribution Width 15 % (10-15); White Blood Count 7.6 10^3/uL (3.5-10.8)
[2019-09-26 07:52] LABS: ALT 27 U/L (7-52); AST 30 U/L (13-39); Albumin 3.6 g/dL (3.2-5.2); Alkaline Phosphatase 87 U/L (34-104); Anion Gap 6 mmol/L (2-11); Blood Urea Nitrogen 11 mg/dL (6-24); CO2 Carbon Dioxide 24 mmol/L (22-32); Calcium 8.9 mg/dL (8.6-10.3); Chloride 106 mmol/L (101-111); EGFR African American 72.5 (>60); Globulin 3.7 g/dL (2-4); Glucose 99 mg/dL (70-100); Potassium 3.9 mmol/L (3.5-5.0); Sodium 136 mmol/L (135-145); Total Protein 7.3 g/dL (6.4-8.9)
[2019-09-26] MEDS ORDERED: Meclizine TAB* 12.5 MG PO ONE (08:01)
[2019-09-26 08:21] LABS: ABS Eosinophils 0.6 10^3/ul (0-0.6); ABS Lymphocytes 2.2 10^3/ul (1.0-4.8); ABS Monocytes 0.5 10^3/ul (0-0.8); ABS Neutrophils 4.2 10^3/ul (1.5-7.7); Eosinophil % 8.3 %; Lymphocyte % 29.1 %
[2019-09-26 08:30] LABS: HCG Pregnancy < 0.60 mIU/mL
[2019-09-26 10:25] VITALS: BP 107/73
== END 2019-09-26 10:25 | disposition home or self-care (01) ==
LOC: ED 06:08
DX: H81.10 Benign paroxysmal vertigo, unspecified ear (principal); R42 Dizziness and giddiness; Z94.4 Liver transplant status; I10 Essential (primary) hypertension; R51 Headache
CPT/HCPCS: 36415; 80053; 84484; 84702; 85025; 85060; 93005; 96361; 96374; 99283; A9270-GY; J2765